=== PATIENT | female | born 1985 | race Caucasian/White ===

== ENCOUNTER 2024-01-18 06:59 | Emergency (ER) | payer OTHER, SELFPAY ==
[2024-01-18 07:00] VITALS: BP 134/74; PULSE 63; RESP 18; TEMP 36.6; O2SAT 100; BMI 25.3
--- NOTE | 2024-01-18 07:15 | EDS_ITS ---
HPI History of Present Illness Chief Complaint: Back Informant: patient Narrative Narrative: 38-year-old female presenting to the emergency room with low back pain which began this morning. Patient states that this weekend she did a lot of yard work. She states she did not have any pain in the low back all weekend. She went to bed last night feeling fine. She states she is a back and side sleeper. When she woke this morning she had significant pain in the low back with any type of movement. She states that she went to the bathroom and had difficulty getting up off the commode. She states that she laid on the floor for several hours. Patient denies any radicular symptoms. She denies any loss of bowel or bladder control. She denies any loss of sensation of the legs. She notes pain with ambulation in the low back. She denies personal history of cancer, immunosuppression, IV drug use, prior back surgery. She denies any recent illnesses or fevers. Patient has an IUD in place. No abdominal pain. PFSH PFSH Home Medications ?Medication ?Instructions ?Recorded ?Last Taken ?Type diazepam 5 mg tablet 5 mg PO Q8 PRN Muscle Spasm #10 01/18/24 Unknown Rx tabs hydrocodone-acetaminophen 5-325mg 1 tab PO Q6H PRN PRN Pain 3 days 01/18/24 Unknown Rx 5mg-325mg #12 TABLETS ketorolac 10 mg tablet 10 mg PO Q8H PRN pain #15 tabs 01/18/24 Unknown Rx Allergy/AdvReac Type Severity Reaction Status Date / Time No Known Allergies Allergy Verified 01/18/24 06:59 Social History Smoking Status: Never smoker ROS ROS ED Constitutional Constitutional ED: Denies chills, fever(s) or weight loss Eyes Eyes: Denies change in vision or diplopia ENT ENT ED: Denies ear pain, rhinorrhea or sore throat Cardiovascular Cardiovascular: Denies chest pain, orthopnea, palpitations or racing heartbeat Respiratory/Chest Respiratory/Chest: Denies cough, dyspnea or orthopnea Gastrointestinal Gastrointestinal: Denies abdominal pain, diarrhea, nausea or vomiting Genitourinary Genitourinary ED: Denies dysuria, hematuria or urinary frequency Musculoskeletal Musculoskeletal: Reports back pain; Denies arthralgias, myalgias or neck pain Integumentary Denies abscess or rash Neurologic Neurologic: Denies headache(s), paresthesias or weakness Psychiatric Psychiatric: Denies anxiety, depression, suicidal ideation or suicidal thoughts Endocrine Endocrinology: Denies polydipsia, polyphagia or polyuria Allergic/Immunologic Allergic/Immunologic ED: Denies mouth swelling, tongue swelling or urticaria EXAM Physical Exam Const Vital Signs: 01/18/24 07:00 Temperature 97.8 F Temperature Source Temporal Pulse Rate 63 Respiratory Rate 18 Blood Pressure 134/74 H Blood Pressure Mean 94 Pulse Ox 100 Oxygen Delivery Method Room Air Positive well nourished and well developed Constitutional Narrative: Patient appears pain laying on supine on bed with legs flexed at hips with feet on bed General Appearance ED: well developed HEENT Reports normocephalic, head/scalp atraumatic and moist mucous membranes Eyes PERRL and EOMs intact bilaterally Neck no lymphadenopathy, supple and no JVD Resp clear to auscultation bilaterally Resp Narrative: hyperventilating Cardio regular rate, regular rhythm and no murmurs GI normal to inspection, nondistended, normoactive bowel sounds and non-tender Palpation: soft Back/Spine no CVA tenderness Back/Spine Narrative: TTP lower lumber paraspoinal musculature Lumbar Spine / Lower Back: ROM limited Extremity normal to inspection General Extremety ED: Negative for edema General Extremity: Negative for edema Neuro oriented x3 and CN's II-XII intact bilaterally Neuro Narrative: normal sensation of bilateral lower legs Sensorium / Orientation: alert Motor Exam: strength 5/5 throughout Deep Tendon Reflexes: Rt Patellar (L4): 2+, Lt Patellar (L4): 2+, Rt Ankle (S1): 2+ and Lt Ankle (S1): 2+ Deep Tendon Reflexes Back: Rt Patellar (L4): 2+, Lt Patellar (L4): 2+, Rt Ankle (S1): 2+ and Lt Ankle (S1): 2+ Psych mental status grossly normal Mood & Affect: Negative for depressed or tearful Skin no rashes or lesions noted and no wounds MDM MDM MDM Narrative Medical decision making narrative: Differential diagnosis includes but not limited to muscle strain muscle spasm disc herniation spinal stenosis. Patient received a dose of Toradol and morphine and Valium. Repeat examination finds the patient's pain to be significantly improved. I believe this to be musculoskeletal in nature. She has no radicular symptoms or acute neurologic deficits. I do not believe advanced imaging is needed. Not seeing evidence of infectious process at this time. I would recommend rest heat gentle stretching oral hydration. I will write for some Valium Toradol and a few [place]. Would recommend PCP follow-up. History & Record Review Discussion w/independent historian: Patient and Family Discharge Plan Triage Chief Complaint: Back ED Provider: Junior Baltazar Dx/Rx/DC Orders Clinical Impression: Strain of lumbar paraspinal muscle, Lumbar paraspinal muscle spasm, Acute low back pain Instructions: ED Back Spasm, No Trauma, ED Back Sprain/Strain Prescriptions: New diazepam 5 mg tablet 5 mg PO Q8 PRN (Reason: Muscle Spasm) Qty: 10 0RF hydrocodone-acetaminophen 5-325 mg tablet 1 tab PO Q6H PRN PRN (Reason: Pain) 3 Days Qty: 12 0RF ketorolac 10 mg tablet 10 mg PO Q8H PRN (Reason: pain) Qty: 15 0RF Rx Instructions: maximum total duration of 5 days from all oral, intranasal, or parenteral formulations Primary Care Provider: Moisés Angulo Referrals: Care Physician,No Primary [Non-Staff] - Activity Restrictions/Additional Instructions: follow up with PCP in 1 week if not improving Print Language: [place] Disposition Disposition: Home, Self Care
[2024-01-18] MEDS: Ketorolac 60 MG/2 ML Vial IM (07:21)
[2024-01-18] MEDS: morphine 10 MG/ML Syringe 5 MG IM (07:22)
[2024-01-18] MEDS: diazePAM 5 MG Tablet PO (07:22)
[2024-01-18 09:15] VITALS: BP 124/67; PULSE 73; RESP 15; TEMP 36.7; O2SAT 99
== END 2024-01-18 09:16 | disposition home or self-care (01) ==
PROVIDERS: Emergency Provider Emergency Medicine; PCP Student in an Organized Health Care Education/Training Program; Visit Provider Emergency Medicine
DX: S39.012A Strain of muscle, fascia and tendon of lower back, initial encounter (principal); M62.830 Muscle spasm of back; X50.9XXA Other and unspecified overexertion or strenuous movements or postures, initial encounter
CPT/HCPCS: 96372; 99282

== ENCOUNTER → 2024-10-02 | Outpatient (CLI) | payer OTHER, SELFPAY ==
--- NOTE | 2024-10-02 16:15 | MRI_ITS ---
PROCEDURE: MRI lumbar spine without IV contrast REASON FOR EXAM: Pain, radiculopathy TECHNIQUE: Multisequence multiplanar MR images of the lumbar spine were obtained without the administration of intravenous contrast. COMPARISON: None. FINDINGS: Vertebral body heights are within normal limits. Negative for fracture or marrow replacement. Alignment is intact. Degenerative disc disease from L4 through S1. Conus medullaris is intact and terminates at T12-L1. No paraspinal mass. L1-2: No focal disc abnormality, spinal stenosis or foraminal narrowing. L2-3: No focal disc abnormality, spinal stenosis or foraminal narrowing. L3-4: No focal disc abnormality, spinal stenosis or foraminal narrowing. L4-5: Posterior disc bulge with central annular fissure. Mild bilateral facet arthrosis. No significant spinal stenosis. Minimal bilateral foraminal narrowing. L5-S1: Central disc protrusion measuring 4 x 12 mm (AP and TV dimensions). Disc protrusion abuts the traversing right S1 nerve root in the lateral recess. Mild spinal stenosis. Mild bilateral facet arthropathy. Minimal bilateral foraminal narrowing. MRI/Spine Lumbar (Routine) IMPRESSION: 1. Central disc protrusion at L5-S1 with disc material approaching the traversi ng right S1 nerve root in the lateral recess. Mild spinal stenosis at this level. 2. Acquired minimal bilateral foraminal narrowing from L4 through S1. Reading Location: [facility]
== END | disposition home or self-care (01) ==
PROVIDERS: PCP Student in an Organized Health Care Education/Training Program; Referring Provider Orthopaedic Surgery Orthopaedic Surgery of the Spine; Visit Provider Orthopaedic Surgery Orthopaedic Surgery of the Spine
DX: M54.16 Radiculopathy, lumbar region (principal)
CPT/HCPCS: 72148